=== PATIENT | female | born 1970 | race American Indian/Alaskan Native ===

== ENCOUNTER 2017-07-31 08:07 | Outpatient (CLI) | payer BC ==
--- NOTE | 2017-08-01 08:38 | Mammography Report ---
BILATERAL DIGITAL SCREENING MAMMOGRAM with CAD: 07/31/17 08:07:00 CLINICAL: Routine screening. COMPARISON:None available. FINDINGS: The breasts are heterogeneously dense, which may obscure small masses. Right retroareolar asymmetries require additional imaging.No architectural distortion or suspicious calcifications.The left breast is negative. IMPRESSION: Right asymmetries requiring further workup. BI-RADS CATEGORY: 0 -- Additional Imaging Evaluation Required RECOMMENDATION: Recall for right lateralmedial and MLO and CC spot magnification views and right breast ultrasound if needed. ACR BI-RADS MAMMOGRAPHIC CODES: 0 = Needs additional imaging evaluation; 1 = Negative; 2 = Benign; 3 = Probably benign; 4 = Suspicious; 5 = Malignant; 6 = Known biopsy-proven malignancy COMMENT: 1. Dense breast tissue, i.e., adenosis, fibrocystic changes, etc., may obscure an underlying neoplasm. 2. Approximately 10% of cancers are not detected with mammography. 3. A negative mammography report should not delay biopsy if a clinically suspicious mass is present. COMMENT: Patient follow-up letters are generated via our [employer] application.
== END 2017-07-31 08:08 | disposition home or self-care (01) ==
LOC: SPVWC 08:07
PROVIDERS: ATTEND Obstetrics & Gynecology
DX: Z12.31 Encounter for screening mammogram for malignant neoplasm of breast (principal)
CPT/HCPCS: 77067; G0202

== ENCOUNTER 2017-08-07 09:27 | Outpatient (CLI) | payer BC ==
--- NOTE | 2017-08-07 10:40 | Mammography Report ---
RIGHT DIGITAL DIAGNOSTIC MAMMOGRAM : 08/07/17 09:27:00 CLINICAL: Recalled for asymmetry. COMPARISON:07/31/17 screening FINDINGS: Lateralmedial and spot compression MLO and CC views were performed and are negative. IMPRESSION: Negative Mammogram. BI-RADS CATEGORY: 1 -- Negative RECOMMENDATION: Routine mammographic screening in one year. ACR BI-RADS MAMMOGRAPHIC CODES: 0 = Needs additional imaging evaluation; 1 = Negative; 2 = Benign; 3 = Probably benign; 4 = Suspicious; 5 = Malignant; 6 = Known biopsy-proven malignancy COMMENT: 1. Dense breast tissue, i.e., adenosis, fibrocystic changes, etc., may obscure an underlying neoplasm. 2. Approximately 10% of cancers are not detected with mammography. 3. A negative mammography report should not delay biopsy if a clinically suspicious mass is present. COMMENT: Patient follow-up letters are generated via our [employer] application.
== END 2017-08-07 09:28 | disposition home or self-care (01) ==
LOC: SPVWC 09:27
PROVIDERS: ATTEND Obstetrics & Gynecology
DX: R92.8 Other abnormal and inconclusive findings on diagnostic imaging of breast (principal)
CPT/HCPCS: G0206-RT

== ENCOUNTER 2017-10-11 08:12 | Outpatient (CLI) | payer BC ==
--- NOTE | 2017-10-11 11:11 | Cat Scan Report ---
CT ABDOMEN AND PELVIS WITHOUT CONTRAST: 10/11/17 08:12:00 CLINICAL: Uterine mass. TECHNIQUE: Volumetric acquisition and 1.25 millimeter scan reconstructions without contrast. A contrast exam was ordered but we were unable to obtain IV access for contrast administration. Oral contrast was given. FINDINGS: Abdomen: Clear lung bases. Normal liver size, contour and overall density. A 1.7 x 1.3 cm right hepatic cyst at the diaphragm. No liver mass. The gallbladder and bile ducts are normal. Normal stomach, duodenum, pancreas and spleen. Normal adrenal glands and kidneys. The renal collecting systems and ureters are nondilated. Normal aorta and inferior vena cava. The small bowel and colon are normal. The appendix is normal. Pelvis: An enlarged fibroid uterus measures approximately 14 cm craniocaudal dimension by 10 cm AP dimension by 9.5 cm transverse image. Too numerous to count calcified fibroids of varying sizes. The largest is located intramural the left of midline in the uterine fundus and measures 3.8 cm. The endometrium and uterine cavity are not demonstrated. A 2.3 cm follicle the left ovary. The left ovary is not optimally imaged and a right ovary is not imaged. No adnexal mass or free fluid. Normal urinary bladder, rectum and sigmoid colon. No pelvic lymphadenopathy or mass. The bones and soft tissues are normal. IMPRESSION: 1. Uterine leiomyomata with uterine enlargement and too numerous to count fibroids. 2. Normal left ovary with a 2.3 cm follicle. 3. A right ovary is not imaged. 4. Normal renal collecting systems with no hydronephrosis. 5. 1.7 cm benign right hepatic cyst and otherwise normal abdomen.
== END 2017-10-11 08:13 | disposition home or self-care (01) ==
LOC: SPVIMAG 08:12
PROVIDERS: ATTEND Obstetrics & Gynecology
DX: D25.1 Intramural leiomyoma of uterus (principal); K76.89 Other specified diseases of liver
CPT/HCPCS: 74176; 74177

== ENCOUNTER 2022-01-17 19:57 | Emergency (ER) | payer BC, OTHER | END 2022-01-17 22:15 | disposition left against medical advice (07) | LOC: ED 19:57 | DX: M54.2 Cervicalgia (principal); R51.9 Headache, unspecified; Z53.21 Procedure and treatment not carried out due to patient leaving prior to being seen by health care provider ==